=== PATIENT | male | born 1985 | race Caucasian/White ===

== ENCOUNTER 2020-01-09 15:40 | Emergency (ER) | payer MEDICARE, OTHER ==
--- NOTE | 2020-01-09 15:49 | ED ---
Psych HPI - General Stated Complaint: mental health Time Seen by Provider: 01/09/20 15:48 Source: RN notes reviewed, old records reviewed Limitations: no limitations - History of Present Illness Initial Comments: This is a 32-year-old male presents for psychiatric evaluation no recent drugs or alcohol he does take Xanax and Adderall on a daily basis for underlying anxiety issues. Patient states he is under some increased stress lately feels more anxious than normal and has been thinking about committing also for psychiatric evaluation last few days today was worse and he comes to the ER MD Complaint: feels depressed, other (Significant anxiety) -: days(s) Associated Psychiatric Symptoms: depression, other (Anxiety) History of same: Yes Quality: constant, getting worse Improves With: none Worsens With: none Context: significant life stressor Associated Symptoms: denies other symptoms Treatments Prior to Arrival: placed on mental health hold - Related Data Allergies Allergy/AdvReac Type Severity Reaction Status Date / Time No Known Allergies Allergy Verified 01/09/20 16:20 Review of Systems ROS Statement: Those systems with pertinent positive or pertinent negative responses have been documented in the HPI. ROS Other: All systems not noted in ROS Statement are negative. General Exam General appearance: alert, in no apparent distress, anxious Head exam: Present: atraumatic, normocephalic, normal inspection Eye exam: Present: normal appearance, PERRL, EOMI. Absent: scleral icterus, conjunctival injection, periorbital swelling ENT exam: Present: normal exam, mucous membranes moist Neck exam: Present: normal inspection. Absent: tenderness, meningismus, lymphadenopathy Respiratory exam: Present: normal lung sounds bilaterally. Absent: respiratory distress, wheezes, rales, rhonchi, stridor Cardiovascular Exam: Present: regular rate, normal rhythm, normal heart sounds. Absent: systolic murmur, diastolic murmur, rubs, gallop, clicks GI/Abdominal exam: Present: soft, normal bowel sounds. Absent: distended, tenderness, guarding, rebound, rigid Extremities exam: Present: normal inspection, full ROM, normal capillary refill. Absent: tenderness, pedal edema, joint swelling, calf tenderness Back exam: Present: normal inspection Neurological exam: Present: alert, oriented X3, CN II-XII intact Psychiatric exam: Present: normal affect, normal mood Skin exam: Present: warm, dry, intact, normal color. Absent: rash Course Vital Signs 01/09/20 15:45 Temperature 98.7 F Pulse Rate 74 Respiratory 18 Rate Blood Pressure 122/80 O2 Sat by Pulse 96 Oximetry - Reevaluation(s) Reevaluation #1: 01/09/20 16:17 medical records reviewed Reevaluation #2: 01/09/20 16:18 patient's medically clear for psychiatric evaluation Medical Decision Making - Medical Decision Making 34 male who was seen in however psychiatry here in the ER patient is deemed stable and safe for discharge home to go to crisis but the morning for further acute psychiatric treatment and evaluation - Lab Data Lab Results 01/09/20 Range/Units 16:24 Urine Opiates Screen Not Detected (NotDetected) Ur Oxycodone Screen Not Detected (NotDetected) Urine Methadone Screen Not Detected (NotDetected) Ur Propoxyphene Screen Not Detected (NotDetected) Ur Barbiturates Screen Not Detected (NotDetected) U Tricyclic Antidepress Not Detected (NotDetected) Ur Phencyclidine Scrn Not Detected (NotDetected) Ur Amphetamines Screen Detected H (NotDetected) U Methamphetamines Scrn Not Detected (NotDetected) U Benzodiazepines Scrn Detected H (NotDetected) Urine Cocaine Screen Not Detected (NotDetected) U Marijuana (THC) Screen Not Detected (NotDetected) Disposition Clinical Impression: Acute anxiety Disposition: HOME SELF-CARE Condition: Fair Instructions (If sedation given, give patient instructions): Anxiety (ED) Is patient prescribed a controlled substance at d/c from ED?: No Referrals: Jae Gaines MD [Primary Care Provider] - 1-2 days
[2020-01-09 15:50] VITALS: BP 122/80; PULSE 74; RESP 18; TEMP 98.7
[2020-01-09 16:57] LABS: Amphetamine Screen,Urine Detected (NotDetected); Barbiturate Screen,Urine Not Detected (NotDetected); Benzodiazepines Screen,Urine Detected (NotDetected); Cocaine Screen,Urine Not Detected (NotDetected); Methadone Screen, Urine Not Detected (NotDetected); Opiate Screen,Urine Not Detected (NotDetected); Oxycodone Screen, Urine Not Detected (NotDetected); Phencyclidine Screen,Urine Not Detected (NotDetected); Tricyclic Antidepressant,Urine Not Detected (NotDetected); Urn Cannabinoid Scrn Not Detected (NotDetected)
[2020-01-09] MEDS ORDERED: LORazepam 2 MG/ML INJ IM STA (19:12)
[2020-01-09] MEDS ORDERED: TOPICAL SKIN ADHESIVE 1 EACH AMP TOPICAL ONE (19:15)
== END 2020-01-09 19:23 | disposition home or self-care (01) ==
LOC: EEVIPCON 15:40 → EC 15:40
DX: F41.9 Anxiety disorder, unspecified (principal)
CPT/HCPCS: 82075; 80306; 99284; 96372; J2060